=== PATIENT | male | born 1955 | race African-American/Black ===

== ENCOUNTER 2018-09-04 07:37 | Emergency (ER) | payer OTHER, MEDICAID ==
[~2018-09-04] VITALS: Ht 172.7 cm; Wt 111.1 kg
[2018-09-04 08:19] VITALS: BP 143/93
== END 2018-09-04 08:39 | disposition home or self-care (01) ==
LOC: ER 07:43
DX: S70.361A Insect bite (nonvenomous), right thigh, initial encounter (principal); J45.909 Unspecified asthma, uncomplicated; W57.XXXA Bitten or stung by nonvenomous insect and other nonvenomous arthropods, initial encounter; Y93.89 Activity, other specified; Y99.8 Other external cause status; Y92.89 Other specified places as the place of occurrence of the external cause

== ENCOUNTER 2021-01-24 07:07 | Emergency (ER) | payer MEDICARE, MEDICAID ==
[~2021-01-24] VITALS: Ht 172.7 cm; Wt 127.0 kg
[2021-01-24 07:24] VITALS: BP 136/70
[2021-01-24] MEDS ORDERED: methylPREDNISolone SOD SUCC 125 MG/2 ML VL IM ONE (07:30)
== END 2021-01-24 07:50 | disposition home or self-care (01) ==
LOC: ER 07:07
DX: L30.9 Dermatitis, unspecified (principal); J45.909 Unspecified asthma, uncomplicated; I10 Essential (primary) hypertension; E78.5 Hyperlipidemia, unspecified
CPT/HCPCS: 96372; 99283; J2930

== ENCOUNTER 2021-02-05 08:58 | Emergency (ER) | payer MEDICAID ==
[~2021-02-05] VITALS: Ht 172.7 cm; Wt 113.4 kg
[2021-02-05 09:20] VITALS: BP 136/84
== END 2021-02-05 10:31 | disposition home or self-care (01) ==
LOC: ER 08:58
DX: L01.02 Bockhart's impetigo (principal); J45.909 Unspecified asthma, uncomplicated; E78.5 Hyperlipidemia, unspecified; I10 Essential (primary) hypertension

== ENCOUNTER 2022-06-21 08:38 | Emergency (ER) | payer MEDICAID ==
[~2022-06-21] VITALS: Ht 177.8 cm; Wt 118.8 kg
[2022-06-21 08:43] VITALS: BP 146/83
[2022-06-21] MEDS ORDERED: TRIA0.1O TOP (09:16)
== END 2022-06-21 09:24 | disposition home or self-care (01) ==
LOC: ER 08:38
DX: L30.9 Dermatitis, unspecified (principal); I10 Essential (primary) hypertension; E78.5 Hyperlipidemia, unspecified; J45.909 Unspecified asthma, uncomplicated; Z79.899 Other long term (current) drug therapy

== ENCOUNTER 2022-08-05 07:32 | Emergency (ER) | payer MEDICAID ==
[~2022-08-05] VITALS: Ht 172.7 cm; Wt 117.0 kg
[~2022-08-05 07:32] MED LIST: TRIA0.1O TOP
[2022-08-05] MEDS ORDERED: BACDST PO (08:33)
[2022-08-05] MEDS ORDERED: CEPH500C PO (08:33)
[2022-08-05 08:39] VITALS: BP 144/89
== END 2022-08-05 08:42 | disposition home or self-care (01) ==
LOC: ER 07:32
DX: S80.861A Insect bite (nonvenomous), right lower leg, initial encounter (principal); J45.909 Unspecified asthma, uncomplicated; E78.5 Hyperlipidemia, unspecified; I10 Essential (primary) hypertension; Z79.899 Other long term (current) drug therapy; W57.XXXA Bitten or stung by nonvenomous insect and other nonvenomous arthropods, initial encounter; Y93.89 Activity, other specified; Y92.89 Other specified places as the place of occurrence of the external cause; Y99.8 Other external cause status

== ENCOUNTER 2025-03-09 08:53 | Inpatient (IN) | payer MEDICAID, OTHER ==
[~2025-03-09] VITALS: Ht 175.3 cm; Wt 104.3 kg
[~2025-03-09 08:53] MED LIST changes: +BACDST PO; +CEPH500C PO
--- NOTE | 2025-03-09 09:47 | ED.PDOC ---
HPI Comments This is a 69-year-old current smoker male with past medical history of hypertension, dyslipidemia, possible glaucoma, possible hidradenitis suppurative came to the hospital due to dizziness for 3 hours. Per patient, today morning upon waking up from sleep while standing up felt dizzy and upon sitting down dizziness did not improve. He also reports a blurry vision and lightheadedness. He denies chest pain, shortness of breath, headache, blurry vision, loss of consciousness, fall, or any motor or sensory deficits. Per patient, he had checked his blood pressure at home and it was high (188). He also reports that he had same event 1 month back which lasted for 1 hour and did not seek any medical care. Chief Complaint: High Blood Pressure Time Seen by MD: 09:02 Primary Care Provider: unknown Reviewed Notes: Nurses Notes Allergies: Coded Allergies: NO KNOWN ALLERGIES (Unverified , 09/04/18) Home Meds Active Scripts Cephalexin Monohydrate (Cephalexin) 500 Mg Cap, 1 CAP PO QID, #40 CAP Prov:CAIT GLOVER 08/05/22 Sulfamethoxazole W/Trimethopri (Bactrim Ds Tablet) 1 Tab Tb, 1 TAB PO BID for 10 Days, #20 TAB Prov:CAIT GLOVRE 08/05/22 Triamcinolone Acetonide (Triamcinolone Acetonide) 0.1 % Oin, 1 APPLIC TOP BID, #80 GRAMS Prov:YASMEEN MCCORMICK NP 06/21/22 Information Source: Patient Mode of Arrival: Ambulatory Severity: Moderate Timing: Hours Duration: Hours Past Medical History PAST MEDICAL HISTORY: High Lipids, HTN Past Medical History (Other): Possible glaucoma and possible hidradenitis suppurative Surgical History: Denies all surgeries Surgical History (Other): Right hip replacement 10 years back Family History Family History: Reviewed,noncontributory to illness Social History Smoker: Cigarettes (With 50 pack year history) Alcohol: Denies ETOH Use Drugs: Denies Drug Use Lives In: Home Constitutional: denies: chills, diaphoresis, fatigue, fever, malaise, sweats, weakness, others EENTM: reports: blurred vision; denies: double vision, ear bleeding, ear discharge, ear drainage, ear pain, ear ringing, eye pain, eye redness, hearing loss, mouth pain, mouth swelling, nasal discharge, nose bleeding, nose congestion, nose pain, photophobia, tearing, throat pain, throat swelling, voice changes, others Respiratory: denies: cough, hemoptysis, orthopnea, SOB at rest, shortness of breath, SOB with excertion, stridor, wheezing, others Cardiovascular: denies: chest pain, dizzy spells, diaphoresis, Dyspnea on exertion, edema, irregular heart beat, left arm pain, lightheadedness, pal pitations, PND, syncope, others Gastrointestinal: denies: abdomen distended, abdominal pain, blood streaked bowels, constipated, diarrhea, dysphagia, difficulty swallowing, hematemesis, melena, nausea, poor appetite, poor fluid intake, rectal bleeding, rectal pain, vomiting, others Genitourinary: denies: burning, dysuria, flank pain, frequency, hematuria, incontinence, penile discharge, penile sore, pain, testicle pain, testicle swelling, urgency, others Neurological: reports: dizziness; denies: fainting, headache, left sided numbness, left sided weakness, numbness, paresthesia, pre-existing deficit, right sided numbness, right sided weakness, seizure, speech problems, tingling, tremors, weakness, others Musculoskeletal: denies: back pain, gout, joint pain, joint swelling, muscle pain, muscle stiffness, neck pain, others Integumetry: denies: bruises, change in color, change in hair/nails, dryness, laceration, lesions, lumps, rash, wounds, others Allergic/Immunocompromised: denies: Difficulty Healing, Frequent Infections, Hives, Itching, others Hematologic/Lymphatic: denies: anemia, blood clots, easy bleeding, easy bruising, swollen glands, others Endocrine: denies: excessive hunger, excessive sweating, excessive thirst, excessive urination, flushing, intolerance to cold, intolerance to heat, unexplained weight gain, unexplained weight loss, others Psychiatric: denies: anxiety, bipolar disorder, depression, hopeless, panic disorder, schizophrenia, sleepless, suicidal, others Physical Exam General Appearance: No Apparent Distress, Normal HEENT: Normal ENT Inspection, Pharynx Normal, TMs Normal Neck: Full Range of Motion, Non-Tender, Normal, Normal Inspection Respiratory: Chest Non-Tender, Lungs Clear, No Accessory Muscle Use, No Respiratory Distress, Normal Breath Sounds Cardiovascular: No Edema, No JVD, No Murmur, No Gallop, Normal Peripheral Pulses, Regular Rate/Rhythm Breast Exam: Deferred Gastrointestinal: No Organomegaly, Non Tender, No Pulsatile Mass, Normal Bowel Sounds, Soft Genitalia: Deferred Pelvic: Deferred Rectal: Deferred Extremities: No calf tenderness, Normal capillary refill, Normal inspection, Normal range of motion, Non-tender, No pedal edema Neurologic: Alert, billet worker II-XII nml as Tested, No Motor Deficits, Normal Affect, Normal Mood, No Sensory Deficits Cerebellar Function: Normal Reflexes: Normal Skin: Dry, Normal Color, Warm Lymphatic: No Adenopathy EKG EKG : Comments EKGs shows sinus rhythm, right axis deviation with occasional PVCs Was a procedure done? Was a procedure done?: No CP Differential Dx Differential Diagnosis: PVC's Other Differential Diagnosis Dizziness, benign paroxysmal positional vertigo, TIA, Differential Diagnosis: HTN Accelerated X-Ray, Labs, Meds, VS Vital Signs Date Time Temp Pulse Resp B/P (MAP) Pulse Ox O2 Delivery O2 Flow Rate FiO2 03/09/25 11:49 71 18 125/76 (92) 97 03/09/25 09:51 80 18 98 Room Air* 0 21 03/09/25 09:50 98.3 73 18 119/68 (85) 96 98.3 03/09/25 09:08 78 03/09/25 08:55 98.0 85 19 138/73 98 98.0 Lab Test 03/09/25 12:58 03/09/25 10:31 03/09/25 09:39 03/09/25 09:02 Range/Units Troponin I High Sensitivity Pending 4 3 L </=54 ng/L White Blood Count 6.4 4.4-10.8 10^3/uL Red Blood Count 5.69 4.5-5.90 10^6/uL Hemoglobin 17.5 13.5-17.5 g/dL Hematocrit 51.1 41.0-53.0 % Mean Corpuscular Volume 89.8 80.0-100.0 fL Mean Corpuscular Hemoglobin 30.8 28.0-32.0 pg Mean Corpuscular Hemoglobin Concent 34.3 32.0-36.0 g/dL Red Cell Distribution Width 15.1 H 11.8-14.3 % Platelet Count 150 140-450 10^3/uL Mean Platelet Volume 9.6 6.9-10.8 fL Neutrophils (%) (Auto) 50.7 37.0-80.0 % Lymphocytes (%) (Auto) 34.4 10.0-50.0 % Monocytes (%) (Auto) 11.3 0.0-12.0 % Eosinophils (%) (Auto) 2.8 0.0-7.0 % Basophils (%) (Auto) 0.8 0.0-2.0 % Neutrophils # (Auto) 3.2 1.6-8.6 10 ^3/uL Lymphocytes # (Auto) 2.2 0.4-5.4 10 ^3/uL Monocytes # (Auto) 0.7 0-1.3 10 ^3/uL Eosinophils # (Auto) 0.2 0-0.8 10 ^3/uL Basophils # (Auto) 0.1 0-0.2 10 ^3/uL Nucleated Red Blood Cells 0.2 % Sodium Level 143 136-145 mmol/L Potassium Level 3.8 3.5-5.1 mmol/L Chloride Level 108 H 98-107 mmol/L Carbon Dioxide Level 25 20-31 mmol/L Anion Gap 10 5-15 Blood Urea Nitrogen 8 L 9-23 mg/dL Creatinine 0.91 0.700-1.30 mg/dL Glomerular Filtration Rate Calc 92 >90 mL/min BUN/Creatinine Ratio 8.8 L 10.0-20.0 Serum Glucose 117 H 74-106 mg/dL Calcium Level 9.1 8.7-10.4 mg/dL Magnesium Level 1.9 1.6-2.6 mg/dL Total Bilirubin 0.8 0.2-1.0 mg/dL Aspartate Amino Transferase (AST) 19 13-40 U/L Alanine Aminotransferase (ALT) 31 7-40 U/L Alkaline Phosphatase 106 46-116 U/L B-Type Natriuretic Peptide 28.24 0-100 pg/mL Total Protein 7.5 5.7-8.2 g/dL Albumin 4.4 3.2-4.8 g/dL POC Glucose 187 H 70-106 mg/dl Test 03/09/25 09:00 Range/Units Urine Opiates Screen Neg NEGATIVE Urine Fentanyl Screen Neg NEGATIVE Urine Barbiturates Screen Neg NEGATIVE Urine Phencyclidine Screen Neg NEGATIVE Urine Amphetamines Screen Neg NEGATIVE Urine Benzodiazepines Screen Neg NEGATIVE Urine Cocaine Screen Neg NEGATIVE Urine Cannabinoids Screen Neg NEGATIVE Time of 1ST Reevaluation: 10:00 Reevaluation 1ST: Unchanged Time of 2ND Reevaluation: 12:00 Reevaluation 2ND: Unchanged Time of 3RD Reevaluation: 14:00 Reevaluation 3RD: Unchanged Patient Education/Counseling: Diagnosis, Treatment, Prognosis, Need For Follow Up Family Education/Counseling: Diagnosis, Treatment, Prognosis, Need For Follow Up Comments Patient came to the hospital due to dizziness and blurry vision. Blood pressure was within normal limits. CBC, CMP, and troponin was within normal limits. Chest x-ray performed, showed no significant intrathoracic abnormalities. EKGs done, showed right bundle-branch block, right axis deviation with occasional PVC. Patient was consulted for requirement of inpatient care and possible further cardiology workup and possible expert opinion. Due to previous history of dizziness and current longstanding dizziness the patient would benefit from further workup. SEPSIS Sepsis Screen Date sepsis recognized/suspect: Mar 09, 2025 Time Sepsis recognized/suspect: 854 Recent Procedure: No On Antibiotic Therapy: No Respiratory Rate >20: No Heart Rate >90: No Temp<36 C (96.8 F) or >38.3 C: No SBP <90 or MAP <65 mmHG: No New Acute Mental Status Change: No Is the patient on CPAP, BIPAP,: No Physician Orders Orthostatic Vital Signs (03/09/25 09:28) Chest Xray 1 View (03/09/25 09:38) Troponin-I Hs (03/09/25 12:38) Peripheral Saline Lock (03/09/25 10:54) Electrocardigram (03/09/25 11:57) Vital Signs Date Time Temp Pulse Resp B/P (MAP) Pulse Ox O2 Delivery O2 Flow Rate FiO2 03/09/25 11:49 71 18 125/76 (92) 97 03/09/25 09:51 80 18 98 Room Air* 0 21 03/09/25 09:50 98.3 73 18 119/68 (85) 96 98.3 03/09/25 09:08 78 03/09/25 08:55 98.0 85 19 138/73 98 98.0 Laboratory Tests Test 03/09/25 09:39 White Blood Count 6.4 10^3/uL (4.4-10.8) Departure 1 Departure Time of Disposition: 14:00 Impression: Primary Impression: Pre-syncope Additional Impressions: PVC (premature ventricular contraction) Suppurative hidradenitis Disposition: ADMITTED INPATIENT Admit to: Tele Condition: Guarded Critical Care Note Critical Care Time?: No Stability Stability form required: No Heart Score Heart Score: Heart Score Response (Comments) Value History Slightly Suspicious 0 EKG Repolarization Disturb 1 Age >65 2 Risk Factors 1 or 2 risk factors 1 Troponin Normal limit 0 Total 4 ALVIN LACKEY RESDIENT Mar 09, 2025 09:47
[2025-03-09 09:50] VITALS: TEMP 98.3
[2025-03-09 09:51] VITALS: PULSE 80; RESP 18; O2SAT 98
[2025-03-09 09:52] LABS: Hematocrit 51.1 % (41.0-53.0); Hemoglobin 17.5 g/dL (13.5-17.5); Mean Corpuscular Hemoglobin 30.8 pg (28.0-32.0); Mean Corpuscular Volume 89.8 fL (80.0-100.0); Nucleated Red Blood Cells % 0.2 %
--- NOTE | 2025-03-09 10:01 | DVH ---
CLINICAL HISTORY: HF TECHNIQUE: Single view of the chest was obtained. COMPARISON: None FINDINGS: The heart size and pulmonary vasculature are normal. The lungs are clear. IMPRESSION: NO ACUTE CARDIOPULMONARY PROCESS.
[2025-03-09 10:12] LABS: Alanine Aminotransferase 31 U/L (7-40); Albumin 4.4 g/dL (3.2-4.8); Alkaline Phosphatase 106 U/L (46-116); Anion Gap 10 (5-15); BUN/Creatinine Ratio 8.8 (10.0-20.0); Bilirubin, Total 0.8 mg/dL (0.2-1.0); Blood Urea Nitrogen 8 mg/dL (9-23); Calcium 9.1 mg/dL (8.7-10.4); Carbon Dioxide 25 mmol/L (20-31); Chloride 108 mmol/L (98-107); Glucose 117 mg/dL (74-106); Magnesium 1.9 mg/dL (1.6-2.6); Potassium 3.8 mmol/L (3.5-5.1); Sodium 143 mmol/L (136-145); Total Protein 7.5 g/dL (5.7-8.2)
[2025-03-09 10:42] LABS: Amphetamine Screen, Urine Neg (NEGATIVE); Barbiturate Scree,Urine Neg (NEGATIVE); Benzodiazephine Screen, Urine Neg (NEGATIVE); Cannabinoid Screen, Urine Neg (NEGATIVE); Cocaine Screen, Urine Neg (NEGATIVE); Opiate Scree,Urine Neg (NEGATIVE); Phencyclidine Screen, Urine Neg (NEGATIVE)
[2025-03-09 11:49] VITALS: BP 125/76; PULSE 71; RESP 18; O2SAT 97
--- NOTE | 2025-03-09 13:30 | ECG ---
[facility] Test Date: 2025-03-09 Test Time: 09:08:08 Pat Name: HAIR REA Department: ED Room: Gender: M Lean Sensei: : 1955 Requested By: ALVIN LACKEY Order Number: [id number] Reading MD: Measurements Intervals [place] Rate: 78 P: 72 IN: 206 QRS: 108 QRSD: 139 T: -18 QT: 415 QTc: 473 Interpretive Statements Sinus rhythm Ventricular trigeminy RBBB and LPFB Borderline ST elevation, lateral leads Please click the below link to view image of tracing.
[2025-03-09] MEDS ORDERED: ONDANSETRON HCL 4 MG/2 ML VIAL IV PRN ×2 (15:00→15:15)
[2025-03-09] MEDS ORDERED: HYDROcodone-ACET 5/325MG TAB PO PRN ×2 (15:00→15:15)
--- NOTE | 2025-03-09 15:03 | DVHHP2 ---
History of Present Illness Reason for Visit: Presyncope History of Present Illness 69-year-old male with past medical history of hypertension, hyperlipidemia, possible glaucoma, possible hidradenitis suppurative came to the hospital for dizziness x3 hours. This morning upon waking patient went to stand and felt dizzy, dizziness did not improve, he also had blurry vision and lightheadedness. He does deny chest pain, shortness breath, headache, loss of consciousness, fall or any motor or sensory deficits. Per patient he checked his blood pressure at home and it was 188 mm Hg systolic, however in the ER his blood pressure was within normal limits. Patient had a had the same event happened about 1 month ago which lasted 1 hour and he was not seen by any doctor for this. Patient will be admitted to telemetry for cardiology consult and treatment and management. Past Medical History High Lipids, HTNPossible glaucoma and possible hidradenitis suppurative Past Surgical History Right hip replacement 10 years back Family History Denies Smoke: 1 pack per day (Fifty pack year) ALCOHOL: none Drugs: None Lives: with Family Review of Systems Constitutional: No: Fever, Chills, Sweats, Weakness, Malaise, Other Eyes: No: Pain, Vision change, Conjunctivae inflammation, Eyelid inflammation, Other, Redness ENT: No: Ear pain, Ear discharge, Nose pain, Nose discharge, Nose congestion, Mouth pain, Mouth swelling, Throat pain, Throat swelling, Other Respiratory: No: Cough, Dry, Shortness of breath, SOB with excertion, Wheezing, Hemoptysis, Pleuritic Pain, Sputum, Wheezing, Other Cardiovascular: Lt Headedness; No: Chest Pain, Palpitations, Orthopnea, Paroxysmal Noc. Dyspnea, Edema, Other Gastrointestinal: No: Nausea, Vomiting, Abdominal Pain, Diarrhea, Constipation, Melena, Hematochezia, Other Genitourinary: No Dysuria, No Frequency, No Incontinence, No Hematuria, No Retention, No Other Musculoskeletal: No: other, neck pain, shoulder pain, arm pain, back pain, hand pain, leg pain, foot pain Skin: No: Rash, Lesions, Jaundice, Bruising, Other Neurological: No: Weakness, Numbness, Incoordination, Change in speech, Confusion, Seizures, Other Allergies: Coded Allergies: NO KNOWN ALLERGIES (Unverified , 09/04/18) Medications Current Medications Medications Dose Ordered Sig/Rajni Route Start Time Stop Time Status Last Admin Dose Admin Acetaminophen/ Hydrocodone Bitart 1 tab Q4HP PRN PO 03/09/25 15:00 UNV Ondansetron HCl 4 mg Q4HP PRN IV 03/09/25 15:00 UNV Exam Vital Signs Vital Signs Date Time Temp Pulse Resp B/P (MAP) Pulse Ox O2 Delivery O2 Flow Rate FiO2 03/09/25 11:49 71 18 125/76 (92) 97 03/09/25 09:51 Room Air* 0 21 03/09/25 09:50 98.3 98.3 General Appearance: Alert, Oriented X3, Cooperative, No acute distress HEENT: Atraumatic, PERRLA, EOMI, Mucous membr. moist/pink Respiratory: Clear to auscultation, Normal air movement Cardiovascular: Regular rate, Normal S1, Normal S2, No murmurs Abdominal: Normal bowel sounds, Soft, No tenderness, No hepatospenomegaly, No masses Extremities: No clubbing, No cyanosis, No edema, Normal pulses, No tenderne ss/swelling Skin: No rashes, No breakdown, No significant lesion Neuro: Normal gait, Normal speech, Strength at 5/5 X4 ext, Normal tone, Sensation intact, Cranial nerves 3-12 NL, Reflexes 2+ Psych/Mental Status: Mental status NL, Mood NL Labs/Xrays Reviewed with patient Labs Test 03/09/25 12:58 03/09/25 09:39 03/09/25 09:02 03/09/25 09:00 Range/Units Troponin I High Sensitivity 4 </=54 ng/L White Blood Count 6.4 4.4-10.8 10^3/uL Red Blood Count 5.69 4.5-5.90 10^6/uL Hemoglobin 17.5 13.5-17.5 g/dL Hematocrit 51.1 41.0-53.0 % Mean Corpuscular Volume 89.8 80.0-100.0 fL Mean Corpuscular Hemoglobin 30.8 28.0-32.0 pg Mean Corpuscular Hemoglobin Concent 34.3 32.0-36.0 g/dL Red Cell Distribution Width 15.1 H 11.8-14.3 % Platelet Count 150 140-450 10^3/uL Mean Platelet Volume 9.6 6.9-10.8 fL Neutrophils (%) (Auto) 50.7 37.0-80.0 % Lymphocytes (%) (Auto) 34.4 10.0-50.0 % Monocytes (%) (Auto) 11.3 0.0-12.0 % Eosinophils (%) (Auto) 2.8 0.0-7.0 % Basophils (%) (Auto) 0.8 0.0-2.0 % Neutrophils # (Auto) 3.2 1.6-8.6 10 ^3/uL Lymphocytes # (Auto) 2.2 0.4-5.4 10 ^3/uL Monocytes # (Auto) 0.7 0-1.3 10 ^3/uL Eosinophils # (Auto) 0.2 0-0.8 10 ^3/uL Basophils # (Auto) 0.1 0-0.2 10 ^3/uL Nucleated Red Blood Cells 0.2 % Sodium Level 143 136-145 mmol/L Potassium Level 3.8 3.5-5.1 mmol/L Chloride Level 108 H 98-107 mmol/L Carbon Dioxide Level 25 20-31 mmol/L Anion Gap 10 5-15 Blood Urea Nitrogen 8 L 9-23 mg/dL Creatinine 0.91 0.700-1.30 mg/dL Glomerular Filtration Rate Calc 92 >90 mL/min BUN/Creatinine Ratio 8.8 L 10.0-20.0 Serum Glucose 117 H 74-106 mg/dL Calcium Level 9.1 8.7-10.4 mg/dL Magnesium Level 1.9 1.6-2.6 mg/dL Total Bilirubin 0.8 0.2-1.0 mg/dL Aspartate Amino Transferase (AST) 19 13-40 U/L Alanine Aminotransferase (ALT) 31 7-40 U/L Alkaline Phosphatase 106 46-116 U/L B-Type Natriuretic Peptide 28.24 0-100 pg/mL Total Protein 7.5 5.7-8.2 g/dL Albumin 4.4 3.2-4.8 g/dL POC Glucose 187 H 70-106 mg/dl Urine Opiates Screen Neg NEGATIVE Urine Fentanyl Screen Neg NEGATIVE Urine Barbiturates Screen Neg NEGATIVE Urine Phencyclidine Screen Neg NEGATIVE Urine Amphetamines Screen Neg NEGATIVE Urine Benzodiazepines Screen Neg NEGATIVE Urine Cocaine Screen Neg NEGATIVE Urine Cannabinoids Screen Neg NEGATIVE SEPSIS Sepsis Screen Date sepsis recognized/suspect: Mar 09, 2025 Time Sepsis recognized/suspect: 0855 Recent Procedure: No On Antibiotic Therapy: No Respiratory Rate >20: No Heart Rate >90: No Temp<36 C (96.8 F) or >38.3 C: No SBP <90 or MAP <65 mmHG: No New Acute Mental Status Change: No Is the patient on CPAP, BIPAP,: No Physician Orders Orthostatic Vital Signs (03/09/25 09:28) Chest Xray 1 View (03/09/25 09:38) Peripheral Saline Lock (03/09/25 10:54) Electrocardigram (03/09/25 11:57) Allergies (03/09/25 14:50) Code Status (03/09/25 14:50) Hydrocodone-Acet 5/325mg Tab ([place] 5/32 (03/09/25 15:00) Ondansetron Hcl (Zofran) (03/09/25 15:00) Fall Risk Precautions In Place QSHIFT (03/09/25 14:50) Complete Blood Count (03/10/25 04:00) Comprehensive Metabolic Panel (03/10/25 04:00) Cardiac Diet-2gna,Lofat,Lochol (03/09/25 Dinner) Condition: Fair (03/09/25 14:50) Admit (03/09/25 14:54) Vital Signs Date Time Temp Pulse Resp B/P (MAP) Pulse Ox O2 Delivery O2 Flow Rate FiO2 03/09/25 11:49 71 18 125/76 (92) 97 03/09/25 09:51 80 18 98 Room Air* 0 21 03/09/25 09:50 98.3 73 18 119/68 (85) 96 98.3 03/09/25 09:08 78 03/09/25 08:55 98.0 85 19 138/73 98 98.0 Laboratory Tests Test 03/09/25 09:39 White Blood Count 6.4 10^3/uL (4.4-10.8) Assessment/Plan Assessment/Plan Presyncope/ possible vertigo or orthostatic hypotension Admit to telemetry Cardiology consult due to history of incident happening 1 month prior Orthostatic vital signs Q shift Hypertension Monitor blood pressure Resume home medications once reconciled Nicotine dependent Discussed smoking cessation with patient at the bedside for at least 10 minutes Patient declined nicotine patch PPX/diet Cardiac diet VTE/GI prophylaxis not indicated Plan discussed with: Patient My Orders Orders - SUZE RAMOS Procedure Category Date Status Time Allergies KENDRA 03/09/25 In Process 14:50 Code Status CODE 03/09/25 Transmitted 14:50 Hydrocodone-Acet PHA 03/09/25 Logged 5/325mg Tab ([place] 15:00 Ondansetron Hcl PHA 03/09/25 Logged (Zofran) 15:00 Fall Risk Precautions KENDRA 03/09/[address] 14:50 Complete Blood Count LAB 03/10/25 Verified 04:00 Comprehensive LAB 03/10/25 Verified Metabolic Panel 04:00 Cardiac DIET 03/09/25 Transmitted Diet-2gna,Lofat,Lochol Dinner Condition: Fair KENDRA 03/09/25 In Process 14:50 Admit ADMIT 03/09/25 Transmitted 14:54 Date of Service: Mar 09, 2025 Billing Provider: SUZE RAMOS Common Visit Codes: [id number] INP/OBS CARE (HIGH) Secondary Visit Codes: [id number] CHNG SMOKING 3-10m SUZE RAMOS Mar 09, 2025 15:03
== END 2025-03-09 16:23 | disposition left against medical advice (07) | DRG 312 ==
LOC: ER 08:53 → OVERFLOW 14:54
PROVIDERS: ADMIT Registered Nurse General Practice; ATTEND Registered Nurse General Practice
DX: I95.1 Orthostatic hypotension (principal); E78.5 Hyperlipidemia, unspecified; F17.210 Nicotine dependence, cigarettes, uncomplicated; Z53.29 Procedure and treatment not carried out because of patient's decision for other reasons; I10 Essential (primary) hypertension; I49.3 Ventricular premature depolarization; L73.2 Hidradenitis suppurativa; Z96.641 Presence of right artificial hip joint; Z71.6 Tobacco abuse counseling; Z79.2 Long term (current) use of antibiotics; Z79.899 Other long term (current) drug therapy; R42 Dizziness and giddiness
CPT/HCPCS: 36415; 71045; 80053; 80307; 82962; 83735; 83880; 84484; 85025; 93005; G0378